=== PATIENT | male | born 1975 | race African-American/Black ===

== ENCOUNTER → 2016-08-20 11:44 | Outpatient (CLI) | payer MEDICAID ==
[2015-05-15 09:14] VITALS: BMI 26.0
[~2016-08-20 11:44] MED LIST: ASPIRIN EC325 M1 PO; PRAVASTATIN SOD10 MG PO
--- NOTE | 2016-08-25 08:22 | EEG ---
PATIENT:DK CACERES DATE OF SERVICE: 08/20/16 MEDICAL RECORD: [id number] DATE OF : 75 LOCATION: [facility] ADMISSION DATE: 08/20/16 REFERRING PHYSICIAN: INTERPRETING PHYSICIAN: SARAH WHITLEY MD DATE OF SERVICE: 08/20/2016 Referred by myself as an outpatient. ELECTROENCEPHALOGRAM NUMBER: [id number]. DATE OF EXAMINATION: 08/20/2016 at 12:30 p.m. TECHNICAL DATA: This electroencephalographic recording consists of approximately 20 minutes of data collection utilizing the international 10/20 system of electrode placement in both referential and non-referential montages. Sixteen channels of electrocerebral recording are accompanied by a 17th channel dedicated to the electrocardiographic rhythm and 2 channels of electromyographic recording. Recording is performed in the awake and drowsy states utilizing activation by hyperventilation and photic stimulation. ELECTROENCEPHALOGRAPHIC DATA: The awake state comprises approximately 70% of the recorded electrocerebral activity. Electromyographic artifact is prominent and rapid eye movements are seen. The posterior dominant background consists of a symmetric, semi-rhythmic, waxing and waning 6-7 Hz theta activity, which is suppressed by eye opening. The drowsy state comprises the remaining portion of the recorded electrocerebral activity. Electromyographic artifact is diminished and rapid eye movements are not seen. The posterior dominant background is relatively suppressed. No focal slowing is identified. No epileptiform discharges are seen. Hyperventilation and photic stimulation induced no abnormal change in the recorded electrocerebral activity. INTERPRETATION: Background slow (awake and drowsy). This electroencephalographic recording is indicative of a mild diffuse encephalopathy. TRANSINT:[id number] Voice Confirmation ID: [id number] DOCUMENT ID: [id number] SARAH WHITLEY MD at 0822 CC: [id number] DICTATION DATE: 08/23/16 0721 SUCTION OPERATOR: 08/23/16 0958 DEP CLI 08/20/16 [id number] [place] [address]
== END | disposition home or self-care (01) ==
LOC: D.CN 11:44
DX: I63.139 Cerebral infarction due to embolism of unspecified carotid artery (principal); I77.71 Dissection of carotid artery

== ENCOUNTER 2016-11-11 15:20 | Emergency (ER) | payer MEDICAID ==
[2015-05-15 09:14] VITALS: BMI 26.0
[2016-11-11 15:58] LABS: UDS - AMPHET NEGATIVE QUAL (NEGATIVE); UDS - BARB NEGATIVE QUAL (NEGATIVE); UDS - BENZO NEGATIVE QUAL (NEGATIVE); UDS - COCAINE NEGATIVE QUAL (NEGATIVE); UDS - METH NEGATIVE QUAL (NEGATIVE); UDS - OPIATE NEGATIVE QUAL (NEGATIVE); UDS - PCP NEGATIVE QUAL (NEGATIVE); UDS - THC NEGATIVE QUAL (NEGATIVE)
[2016-11-11 16:23] LABS: HEMOGLOBIN 15.4 g/dL (13.5-17.5); MCH 28.8 pg (26.0-34.0); MCHC 34.2 g/dL (31.0-37.0); MCV 84.3 fL (80.0-100.0); MEAN PLATELET VOLUME 10.7 fL (7.4-10.4); PLATELET COUNT 184 10x3/uL (130-400); RBC 5.34 10x6/uL (4.20-6.10); RDW 14.2 % (11.5-14.5); WBC 4.1 10x3/uL (4.8-10.8)
[2016-11-11 16:46] LABS: ALBUMIN 3.7 g/dL (3.4-5.0); ANION GAP 14.4 mmol/L (8-16); BILIRUBIN - TOTAL 0.17 mg/dL (0.2-1.3); CALCIUM 9.6 mg/dL (8.5-10.1); CARBON DIOXIDE 24.4 mmol/L (21.0-32.0); CREATININE - SERUM 1.6 mg/dL (0.6-1.3); POTASSIUM - SERUM 4.8 mmol/L (3.5-5.1); PROTEIN - SERUM 7.6 g/dL (6.4-8.2)
[2016-11-11 17:08] LABS: EOSINOPHILS 1 % (0-7); LYMPHOCYTES 52 % (15-50); MONOCYTES 6 % (2-11); NEUTROPHILS 41 % (40-80)
[2016-11-11 17:09] LABS: PLATELET ESTIMATE NORMAL
== END 2016-11-11 16:25 | disposition home or self-care (01) ==
LOC: D.ER 15:20
PROVIDERS: Emergency Medicine
DX: R56.9 Unspecified convulsions (principal); F17.200 Nicotine dependence, unspecified, uncomplicated

== ENCOUNTER 2016-11-14 13:41 | Emergency (ER) | payer MEDICAID ==
[2015-05-15 09:14] VITALS: BMI 26.0
[2016-11-14 15:04] LABS: BASOPHILS 0.2 % (0-2); EOSINOPHILS 0.8 % (0-7); HEMATOCRIT 45.1 % (42.0-54.0); HEMOGLOBIN 15.3 g/dL (13.5-17.5); IMMATURE GRANULOCYTES 0.2 % (0-5); MCH 28.5 pg (26.0-34.0); MCHC 33.9 g/dL (31.0-37.0); MCV 84.1 fL (80.0-100.0); MEAN PLATELET VOLUME 10.4 fL (7.4-10.4); MONOCYTES 5.6 % (2-11); NEUTROPHILS 61.2 % (40-80); PLATELET COUNT 172 10x3/uL (130-400); RBC 5.36 10x6/uL (4.20-6.10); WBC 5.2 10x3/uL (4.8-10.8)
[2016-11-14 15:21] LABS: ALBUMIN 3.5 g/dL (3.4-5.0); BILIRUBIN - TOTAL 0.3 mg/dL (0.2-1.3); CALCIUM 9.2 mg/dL (8.5-10.1); CARBON DIOXIDE 29.2 mmol/L (21.0-32.0); CREATININE - SERUM 1.5 mg/dL (0.6-1.3); POTASSIUM - SERUM 4.2 mmol/L (3.5-5.1); PROTEIN - SERUM 7.6 g/dL (6.4-8.2)
[2016-11-14 15:25] LABS: UDS - AMPHET NEGATIVE QUAL (NEGATIVE); UDS - BARB NEGATIVE QUAL (NEGATIVE); UDS - BENZO NEGATIVE QUAL (NEGATIVE); UDS - COCAINE NEGATIVE QUAL (NEGATIVE); UDS - METH NEGATIVE QUAL (NEGATIVE); UDS - OPIATE NEGATIVE QUAL (NEGATIVE); UDS - PCP NEGATIVE QUAL (NEGATIVE); UDS - THC NEGATIVE QUAL (NEGATIVE)
== END 2016-11-14 16:25 | disposition home or self-care (01) ==
LOC: D.ER 13:41
PROVIDERS: Emergency Medicine
DX: G40.909 Epilepsy, unspecified, not intractable, without status epilepticus (principal); F32.9 Major depressive disorder, single episode, unspecified; I10 Essential (primary) hypertension; Z86.73 Personal history of transient ischemic attack (TIA), and cerebral infarction without residual deficits; F17.200 Nicotine dependence, unspecified, uncomplicated

== ENCOUNTER 2016-12-20 15:07 | Emergency (ER) | payer MEDICAID ==
[2015-05-15 09:14] VITALS: BMI 26.0
== END 2016-12-20 18:26 | disposition home or self-care (01) ==
LOC: D.ER 15:07
DX: S49.91XA Unspecified injury of right shoulder and upper arm, initial encounter (principal); X58.XXXA Exposure to other specified factors, initial encounter; Y93.89 Activity, other specified; Y92.019 Unspecified place in single-family (private) house as the place of occurrence of the external cause; S42.291A Other displaced fracture of upper end of right humerus, initial encounter for closed fracture; G40.909 Epilepsy, unspecified, not intractable, without status epilepticus; I10 Essential (primary) hypertension; F32.9 Major depressive disorder, single episode, unspecified; F17.200 Nicotine dependence, unspecified, uncomplicated

== ENCOUNTER → 2017-01-20 10:34 | Outpatient (CLI) | payer MEDICAID ==
[2015-05-15 09:14] VITALS: BMI 26.0
--- NOTE | 2017-01-21 08:56 | EEG ---
PATIENT:DK CACERES DATE OF SERVICE: 01/20/17 MEDICAL RECORD: [id number] DATE OF : 75 LOCATION: [facility] ADMISSION DATE: 01/20/17 REFERRING PHYSICIAN: INTERPRETING PHYSICIAN: SARAH WHITLEY MD DATE OF SERVICE: 01/20/2017 Referred by myself as an outpatient. ELECTROENCEPHALOGRAM NUMBER: [id number] DATE OF EXAMINATION: 01/20/2017 at 11:15 a.m. TECHNICAL DATA: This electroencephalographic recording consists of approximately 20 minutes of data collection utilizing the international 10/20 system of electrode placement and both referential and non-referential montages. Sixteen channels of electrocerebral recording are accompanied by a 17th channel dedicated to the electrocardiographic rhythm and 2 channels of electromyographic recording. Recording is performed in the awake and drowsy states utilizing activation by hyperventilation and photic stimulation. ELECTROENCEPHALOGRAPHIC DATA: The awake state comprises approximately 50% of the recorded electrocerebral activity. Electromyographic artifact is prominent and rapid eye movements are seen. The posterior dominant background is not well demonstrated, but when seen, consists of a symmetric, semi-arrhythmic, waxing and waning 8-9 Hz alpha activity, which is suppressed by eye opening. The drowsy state comprises the remaining portion of the recorded electrocerebral activity. Electromyographic artifact is diminished and rapid eye movements are not seen. The posterior dominant background is relatively suppressed. No abnormal or focal slowing is identified. No epileptiform discharges are seen. Hyperventilation and photic stimulation induced no abnormal change in the recorded electrocerebral activity. INTERPRETATION: Normal (awake and drowsy). This is a normal electroencephalographic recording. TRANSINT:[id number] Voice Confirmation ID: [id number] DOCUMENT ID: [id number] SARAH WHITLEY MD at 0856 CC: [id number] DICTATION DATE: 01/21/17 0714 NAIL MILL WORKER: 01/21/17 0813 DEP CLI 01/20/17 [id number] [place] [address]
== END | disposition home or self-care (01) ==
LOC: D.CN 01-19 10:00
DX: I63.139 Cerebral infarction due to embolism of unspecified carotid artery (principal); I77.71 Dissection of carotid artery

== ENCOUNTER 2018-01-04 03:51 | Emergency (ER) | payer MEDICAID ==
[~2018-01-04] VITALS: Ht 180.3 cm; Wt 93.2 kg
[2018-01-04 03:54] VITALS: Ht 180.3 cm; Wt 93.2 kg
[2018-01-04] MEDS ORDERED: DEPAKOTE500 MG PO (03:55)
[2018-01-04] MEDS ORDERED: ATIVAN1 MG PO (03:56)
[2018-01-04] MEDS ORDERED: FLOMAX0.4 MG PO (03:56)
[2018-01-04] MEDS ORDERED: PROZAC20 MG PO (03:56)
[2018-01-04] MEDS ORDERED: DEPAKOTE ER500 MG PO (04:12)
[2018-01-04 05:01] LABS: BASOPHILS 0.3 % (0-2); EOSINOPHILS 0.6 % (0-7); HEMATOCRIT 43.1 % (42.0-54.0); HEMOGLOBIN 14.9 g/dL (13.5-17.5); IMMATURE GRANULOCYTES 0.3 % (0-5); LYMPHOCYTES 15.2 % (15-50); MCH 29.1 pg (26.0-34.0); MCHC 34.6 g/dL (31.0-37.0); MCV 84.2 fL (80.0-100.0); MEAN PLATELET VOLUME 10.2 fL (7.4-10.4); MONOCYTES 7.3 % (2-11); NEUTROPHILS 76.3 % (40-80); PLATELET COUNT 185 10x3/uL (130-400); RBC 5.12 10x6/uL (4.20-6.10); WBC 7.8 10x3/uL (4.8-10.8)
[2018-01-04] MEDS ORDERED: KEPPRA500 MG PO (05:03)
[2018-01-04 05:21] LABS: ALBUMIN 3.4 g/dL (3.4-5.0); ANION GAP 13.9 mmol/L (8-16); BILIRUBIN - TOTAL 0.21 mg/dL (0.2-1.3); CALCIUM 8.4 mg/dL (8.5-10.1); CREATININE - SERUM 1.5 mg/dL (0.6-1.3); MAGNESIUM - SERUM 2.3 mg/dL (1.8-2.4); POTASSIUM - SERUM 3.9 mmol/L (3.5-5.1); PROTEIN - SERUM 7.7 g/dL (6.4-8.2); VALPROIC ACID (DEPAKOTE) 23.3 ug/mL (50.0-100.0)
[2018-01-04 07:04] VITALS: BP 126/84
== END 2018-01-04 07:05 | disposition home or self-care (01) ==
LOC: D.ER 03:51
PROVIDERS: Emergency Medicine
DX: G40.909 Epilepsy, unspecified, not intractable, without status epilepticus (principal); I69.898 Other sequelae of other cerebrovascular disease; F17.200 Nicotine dependence, unspecified, uncomplicated